=== PATIENT | male | born 1960 | race Caucasian/White ===

== ENCOUNTER 2016-08-04 07:51 | Outpatient (CLI) | payer MEDICAID | END 2016-08-04 07:52 | disposition home or self-care (01) | DX: D64.9 Anemia, unspecified (principal); I21.3 ST elevation (STEMI) myocardial infarction of unspecified site; F25.0 Schizoaffective disorder, bipolar type ==

== ENCOUNTER 2016-08-31 09:46 | Outpatient (CLI) | payer MEDICAID | END 2016-08-31 09:47 | disposition home or self-care (01) | DX: F25.0 Schizoaffective disorder, bipolar type (principal) ==

== ENCOUNTER 2016-12-11 09:25 | Emergency (ER) | payer MEDICAID ==
--- NOTE | 2016-12-11 09:49 | ED Physician Documentation ---
History of Present Illness - Stated complaint Stated Complaint: L SIDE NUMBNESS - Chief complaint Chief Complaint: Neuro - History obtained from History obtained from: Patient, Family - History of Present Illness Timing: Today - Additonal information Additional information: This patient is a 56-year-old male who presents with a complaint of right-sided facial numbness, tingling, any leakage of fluids from his mouth when he tries to drink. In addition his sister is present he knows some well as his speech does not sound right. The patient denies any numbness tingling or weakness or any neurologic complaints below the neck. 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 He also has a history of schizoaffective disorder. The patient and his sister says he was normal last night with no complaints and he woke up this morning It was noticed that he had these problems. He thinks the problems have gotten little worse since this morning. He denies any chest pain, shortness of breath, nausea , vomiting, constipation or diarrhea Review of systems: For complete review of systems please see history of present illness otherwise all other systems have been reviewed and are normal. Review of Systems Ten Systems: 10 systems reviewed and negative Eyes: denies: Loss of vision Ears: denies: Loss of hearing PD PAST MEDICAL HISTORY - Past Medical History Past Medical History: Yes Cardiovascular: Congestive heart failure Respiratory: Sleep apnea Psych: Other Other Past Medical History: schizoaffective disorder - Past Surgical History Past Surgical History: Yes Ortho: Hip replacement - Present Medications Home Medications: Ambulatory Orders Medication Instructions Recorded Confirmed Calcium Carb, Citrate/Vit D3 1 tab PO DAILY 12/29/13 12/11/16 [Calcium + D3 ER Tablet] Docusate Sodium 100Mg Capsule 100 mg PO DAILY 12/29/13 12/11/16 [Colace] Duloxetine HCl [Cymbalta] 60 mg PO DAILY 12/29/13 12/11/16 Iron 36 mg PO BID 12/29/13 12/11/16 Metoprolol Succinate [Toprol Xl] 50 mg PO DAILY 12/29/13 12/11/16 Multivitamin [Multivitamins] 1 tab PO DAILY 12/29/13 12/11/16 Omeprazole 40 mg PO BID PRN 12/29/13 12/11/16 Pravastatin Sodium 80 mg PO DAILY 12/29/13 12/11/16 Prazosin [Minipress] 1 mg PO DAILY 12/29/13 12/11/16 QUEtiapine [SEROquel] 600 mg PO DAILY 12/29/13 12/11/16 Risperidone 2 mg PO BID 12/29/13 12/11/16 Aspirin [Adult Low Dose Aspirin EC] 81 mg PO DAILY 11/15/15 12/11/16 Divalproex Sodium [Divalproex 1,000 mg PO DAILY 11/15/15 12/11/16 Sodium ER] Fluticasone [Flonase] 2 sprays NS DAILY 11/15/15 12/11/16 Furosemide 20 mg PO DAILY 11/15/15 12/11/16 Losartan Potassium 25 mg PO DAILY 11/15/15 12/11/16 Rivaroxaban [Xarelto] 20 mg PO DAILY 11/15/15 12/11/16 Prednisone 40 mg PO DAILY #8 tablet 12/11/16 Valacyclovir HCl [Valtrex] 1,000 mg PO BID #14 tablet 12/11/16 predniSONE [Deltasone] 10 mg PO DAILY #26 tablet 12/11/16 - Allergies Allergies/Adverse Reactions: Allergies Allergy/AdvReac Type Severity Reaction Status Date / Time Penicillins Allergy Unknown Verified 12/11/16 09:30 - Social History Does the pt smoke?: No Smoking Status: Never smoker Does the pt drink ETOH?: No Does the pt have substance abuse?: No - Immunizations Immunizations are current?: Yes - POLST Patient has POLST: No PD ED PE NORMAL - General General: Alert and oriented X 3, No acute distress - HEENT HEENT: Atraumatic, PERRL, EOMI - Neck Neck: Supple, no meningeal sign - Cardiac Cardiac: RRR, No murmur, No gallop, No rub - Respiratory Respiratory: No respiratory distress, Clear bilaterally - Abdomen Abdomen: Normal bowel sounds, Soft, Non tender, Non distended - Male Male : Deferred - Back Back: No CVA TTP, No spinal TTP - Derm Derm: Normal color, Warm and dry, No rash, Other - Extremities Extremities: No deformity, No tenderness to palpate, Normal ROM s pain, No edema - Neuro Neuro: Alert and oriented X 3, 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 Results - Vitals Vitals: Vital Signs - 24 hr 12/11/16 12/11/16 12/11/16 09:28 11:08 11:14 Temperature 36.5 C Heart Rate 73 59 L Respiratory 18 16 Rate Blood Pressure 138/88 H 128/80 O2 Saturation 95 93 12/11/16 12/11/16 12/11/16 13:15 13:20 14:06 Temperature Heart Rate 54 L 53 L 56 L Respiratory 12 16 16 Rate Blood Pressure 128/80 134/84 H 128/89 H O2 Saturation 95 93 95 Oxygen O2 Source Room air - Labs Labs: Laboratory Tests 12/11/16 12/11/16 12/11/16 09:55 09:55 09:55 WBC 4.7 L RBC 4.37 L Hgb 13.4 L Hct 39.6 L MCV 90.7 MCH 30.7 MCHC 33.9 RDW 14.8 Plt Count 146 MPV 8.7 Neut # 2.2 Lymph # 2.0 Thayer # 0.4 Eos # 0.1 Baso # 0.0 Absolute Nucleated RBC 0.00 Nucleated RBCs 0.1 PT 15.3 H INR 1.4 H APTT 35.2 H Sodium 138 Potassium 3.7 Chloride 100 L Carbon Dioxide 31 Anion Gap 7.0 BUN 14 Creatinine 1.1 Estimated GFR (MDRD) 69 L Glucose 124 H Calcium 8.5 Troponin I B-Natriuretic Peptide Urine Color Urine Clarity Urine pH Ur Specific [place] Urine Protein Urine Glucose (UA) Urine Ketones Urine Occult Blood Urine Nitrite Urine Bilirubin Urine Urobilinogen Ur Leukocyte Esterase Ur Microscopic Review Urine Culture Comments 12/11/16 12/11/16 12/11/16 09:55 09:55 11:05 WBC RBC Hgb Hct MCV MCH MCHC RDW Plt Count MPV Neut # Lymph # Thayer # Eos # Baso # Absolute Nucleated RBC Nucleated RBCs PT INR APTT Sodium Potassium Chloride Carbon Dioxide Anion Gap BUN Creatinine Estimated GFR (MDRD) Glucose Calcium Troponin I < 0.04 B-Natriuretic Peptide 57 Urine Color YELLOW Urine Clarity CLEAR Urine pH 6.0 Ur Specific [place] <=1.005 Urine Protein NEGATIVE Urine Glucose (UA) NEGATIVE Urine Ketones NEGATIVE Urine Occult Blood NEGATIVE Urine Nitrite NEGATIVE Urine Bilirubin NEGATIVE Urine Urobilinogen 0.2 (NORMAL) Ur Leukocyte Esterase NEGATIVE Ur Microscopic Review NOT INDICATED Urine Culture Comments NOT INDICATED PD MEDICAL DECISION MAKING - ED course ED course: This patient is a 56-year-old man who currently is a resident at a assisted living center. He is brought in for evaluation of onset of right sided facial droop and inability to drink liquids. He does have a history of a prior stroke at age 40 and has had significant cardiovascular problems mainly structural problems but does take Xarelto daily and has been compliant with this medication. On physical examination here he was awake and alert and he had an obvious deficit in the right forehead musculature where it is quite obvious he is unable to close her right eye with lid lag. On the same side, the right side he also had a facial droop. Clinically based on this finding is suspected much more likely that he was have an acute Delc Id's palsy as opposed to a central cause such as stroke. During his stay here the symptoms involving the right side have evolved and he has no symptoms of weakness numbness or tingling involving the ipsilateral or contralateral side. CT scan of the head done here is unremarkable according to radiology. Chest x-ray shows no acute intrathoracic disease an EKG shows normal sinus rhythm at 60 bpm the GA is slightly prolonged at 200 ms the QRS is prolonged and right bundle branch block and the QT is borderline prolonged at 502 ms. From a laboratory standpoint there are no significant laboratory abnormalities. He was started on prednisone and Valtrex here for presumed Del Cid's palsy. This is discussed with the patient's daughter who is here with the patient. At this point in time he can be safely discharged home we will continue the Valtrex and a short course of prednisone. Disposition: Discharged back to assisted living Clinical impression: 1. Acute right-sided Del Cid's palsy Departure - Departure Disposition: 01 Home, Self Care Clinical Impression: Stroke-like symptoms, Del Cid's palsy Condition: Good Instructions: ED [place] [facility] Follow-Up: Jossue Coulter MD [Primary Care Provider] - Prescriptions: predniSONE [Deltasone] 10 mg PO DAILY #26 tablet Prednisone 40 mg PO DAILY #8 tablet Valacyclovir HCl [Valtrex] 1,000 mg PO BID #14 tablet
[2016-12-11 10:06] LABS: BASOPHILS % (AUTO) 0.3 %; EOSINOPHILS # (AUTO) 0.1 10^3/uL (0.0-0.7); EOSINOPHILS % (AUTO) 2.4 %; HCT - HEMATOCRIT 39.6 % (42.0-52.0); HGB - HEMOGLOBIN 13.4 g/dL (14.0-18.0); LYMPHOCYTES % (AUTO) 41.4 %; MEAN CORPUSCULAR HEMOGLOBIN 30.7 pg (27.0-31.0); MEAN CORPUSCULAR HGB CONC 33.9 g/dL (32.0-36.0); MEAN CORPUSCULAR VOLUME 90.7 fL (80.0-94.0); MEAN PLATELET VOLUME 8.7 fL (7.4-11.4); MONOCYTES # (AUTO) 0.4 10^3/uL (0.0-1.0); MONOCYTES % (AUTO) 8.7 %; NEUTROPHILS # (AUTO) 2.2 10^3/uL (1.5-6.6); NEUTROPHILS % (AUTO) 47.2 %; NUCLEATED RED BLOOD CELLS AUTO 0.1 /100WBC; RED BLOOD COUNT 4.37 10^6/uL (4.70-6.10); RED CELL DISTRIBUTION WIDTH 14.8 % (12.0-15.0); UNCORRECTED WHITE BLOOD COUNT 4.7 x10^3/uL; WHITE BLOOD COUNT 4.7 x10^3/uL (4.8-10.8)
[2016-12-11 10:11] LABS: CALCIUM 8.5 mg/dL (8.5-10.3); CREATININE 1.1 mg/dL (0.6-1.2); POTASSIUM 3.7 mmol/L (3.5-5.0)
[2016-12-11 10:12] LABS: INR 1.4 (0.8-1.2); PT - PROTHROMBIN TIME 15.3 secs (9.9-12.6)
[2016-12-11 10:19] LABS: PARTIAL THROMBOPLASTIN TIME 35.2 secs (24.9-33.3)
[2016-12-11 11:16] LABS: BILIRUBIN,URINE NEGATIVE (NEGATIVE)
[2016-12-11 11:19] LABS: UA CHARGE (STRIP ONLY) YES; UR CULTURE IF IND NOT INDICATED
--- NOTE | 2016-12-11 12:04 | XRAY Preliminary Report ---
Exam: XR Chest 1 View IMPRESSION: Negative portable chest. No acute findings compared with 2014. [facility] SITE ID: [id number]
--- NOTE | 2016-12-11 12:06 | XRAY Report ---
EXAM: CHEST RADIOGRAPHY EXAM DATE: 12/11/2016 10:39 AM. CLINICAL HISTORY: Possible cva. COMPARISON: 12/29/2013. TECHNIQUE: 1 view. FINDINGS: Lungs/Pleura: No focal opacities evident. No pleural effusion. No pneumothorax. Mediastinum: Within exam limitations, cardiomediastinal contour is normal. Other: Status post sternotomy. IMPRESSION: Negative portable chest. No acute findings compared with 2013. [facility] Referring Provider Line: [phone] SITE ID: [id number]
--- NOTE | 2016-12-11 12:54 | CT Preliminary Report ---
Exam: CT Head W/O Impression: No evidence of an intracranial hemorrhage or depressed skull fracture. Encephalomalacia involving the right parietal lobe consistent with a previous infarct. [facility] SITE ID: [id number]
--- NOTE | 2016-12-11 12:56 | CT Report ---
EXAM: CT HEAD EXAM DATE: 12/11/2016 10:26 AM. CLINICAL HISTORY: Right facial droop. COMPARISON: None. TECHNIQUE: Multiaxial CT images were obtained from the foramen magnum to the vertex. IV contrast: Non e. Reformats: Coronal. In accordance with CT protocol optimization, one or more of the following dose reduction techniques w ere utilized for this exam: automated exposure control, adjustment of mA and/or KV based on patient s ize, or use of iterative reconstructive technique. FINDINGS: There is extensive encephalomalacia involving the right parietal lobe consistent with a previous infa rct. The ventricles and cortical sulci are prominent. There is no evidence of an intraparenchymal hem orrhage or extra-axial fluid collection. The visualized mastoid air cells and paranasal sinuses are clear. No depressed skull fracture is seen . Impression: No evidence of an intracranial hemorrhage or depressed skull fracture. Encephalomalacia involving the right parietal lobe consistent with a previous infarct. [facility] Referring Provider Line: [phone] SITE ID: [id number]
[2016-12-11] MEDS ORDERED: predniSONE 20 MG TABLET PO STA (12:59)
[2016-12-11] MEDS ORDERED: ACYCLOVIR 200 MG CAPSULE PO STA (13:01)
[2016-12-11] MEDS ORDERED: predniSONE 20 MG TABLET ONE (13:10)
[2016-12-11] MEDS ORDERED: ACYCLOVIR 200 MG CAPSULE PO ONE (13:11)
[2016-12-11 14:07] VITALS: BP 128/89
== END 2016-12-11 14:41 | disposition home or self-care (01) ==
LOC: ED 09:25
DX: G51.0 Bell's palsy (principal); I50.9 Heart failure, unspecified; F25.9 Schizoaffective disorder, unspecified; Z79.82 Long term (current) use of aspirin; Z79.52 Long term (current) use of systemic steroids; Z79.01 Long term (current) use of anticoagulants; Z88.0 Allergy status to penicillin; Z86.73 Personal history of transient ischemic attack (TIA), and cerebral infarction without residual deficits
CPT/HCPCS: 36415; 70450; 71010; 80048; 81003; 83880; 84484; 85025; 85610; 85730; 93005; 99284; 99285; A9270; J7512; 81001; 87086

== ENCOUNTER 2017-04-21 12:45 | Outpatient (CLI) | payer MEDICAID | END 2017-04-21 12:46 | disposition critical access hospital (66) | LOC: EMS 12:45 | PROVIDERS: ATTEND Surgery | DX: R20.0 Anesthesia of skin (principal) | CPT/HCPCS: A0425; A0429 ==

== ENCOUNTER 2017-04-21 12:51 | Emergency (ER) | payer MEDICAID ==
--- NOTE | 2017-04-21 16:08 | ED Physician Documentation ---
History of Present Illness - Stated complaint Stated Complaint: NUMB TONGUE - Chief complaint Chief Complaint: Neuro - Additonal information Additional information: hx from pt and EMR per EMR 57 male hx CVA in his 30s and a congesnital cardiac defect on xarelto with baseline L sided weakness lives in an adult home per pt to ER today 2/2 R face numbness since December also states for last week he has been tired and weak and has not been able to get the mail denies any IRWIN neck pain fever cough NVD CP AP he is very sleepy and a poor historian Review of Systems Constitutional: denies: Fever, Chills Cardiac: denies: Chest pain / pressure, Palpitations Respiratory: denies: Dyspnea, Cough GI: denies: Abdominal Pain, Nausea, Vomiting : denies: Dysuria Neurologic: reports: Numbness. denies: Headache Endocrine: reports: Easy bruising / bleeding (xarelto) Immunocompromised: denies: Immunocompromised PD PAST MEDICAL HISTORY - Past Medical History Cardiovascular: Congestive heart failure Respiratory: Sleep apnea Psych: Other - Past Surgical History Past Surgical History: Yes Ortho: Hip replacement - Present Medications Home Medications: Ambulatory Orders Medication Instructions Recorded Confirmed Calcium Carb, Citrate/Vit D3 1 tab PO DAILY 12/29/13 04/21/17 [Calcium + D3 ER Tablet] Docusate Sodium 100Mg Capsule 100 mg PO DAILY 12/29/13 04/21/17 [Colace] Duloxetine HCl [Cymbalta] 60 mg PO DAILY 12/29/13 04/21/17 Metoprolol Succinate [Toprol Xl] 50 mg PO DAILY 12/29/13 04/21/17 Multivitamin [Multivitamins] 1 tab PO DAILY 12/29/13 04/21/17 Omeprazole 40 mg PO BID PRN 12/29/13 04/21/17 Prazosin [Minipress] 1 mg PO DAILY 12/29/13 04/21/17 QUEtiapine [SEROquel] 600 mg PO DAILY 12/29/13 04/21/17 risperiDONE [Risperidone] 2 mg PO BID 12/29/13 04/21/17 Aspirin [Adult Low Dose Aspirin EC] 81 mg PO DAILY 11/15/15 04/21/17 Divalproex Sodium [Divalproex 1,000 mg PO DAILY 11/15/15 04/21/17 Sodium ER] Fluticasone [Flonase] 2 sprays NS DAILY 11/15/15 04/21/17 Furosemide 20 mg PO DAILY 11/15/15 04/21/17 Losartan Potassium 25 mg PO DAILY 11/15/15 04/21/17 Rivaroxaban [Xarelto] 20 mg PO DAILY 11/15/15 04/21/17 - Allergies Allergies/Adverse Reactions: Allergies Allergy/AdvReac Type Severity Reaction Status Date / Time Penicillins Allergy Unknown Verified 04/21/17 12:55 - Social History Does the pt smoke?: No Smoking Status: Never smoker Does the pt drink ETOH?: No Does the pt have substance abuse?: No - Immunizations Immunizations are current?: Yes - POLST Patient has POLST: No PD ED PE NORMAL - Vitals Vital signs reviewed: Yes - General General: No: Alert and oriented X 3 (alert answers questions confused and groggy ) - HEENT HEENT: PERRL (2 mm), EOMI (with nytsagmus) - Neck Neck: Supple, no meningeal sign - Cardiac Cardiac: RRR - Respiratory Respiratory: No respiratory distress, Clear bilaterally - Abdomen Abdomen: Soft, Non tender - Neuro Neuro: Other (facial droop not new per pt and chart, dec sensation to right face near mouth). No: Alert and oriented X 3 Results - Vitals Vitals: Vital Signs - 24 hr 04/21/17 04/21/17 04/21/17 12:52 15:40 18:19 Temperature 36.8 C 36.6 C Heart Rate 70 63 64 Respiratory 12 15 16 Rate Blood Pressure 144/85 H 132/87 H 133/75 H O2 Saturation 97 94 Oxygen O2 Source Room air - Labs Labs: Laboratory Tests 04/21/17 04/21/17 04/21/17 16:00 16:32 16:32 WBC 4.3 L RBC 4.31 L Hgb 13.3 L Hct 39.3 L MCV 91.3 MCH 30.8 MCHC 33.8 RDW 14.1 Plt Count 164 MPV 8.4 Neut # 1.9 Lymph # 1.8 Pope # 0.5 Eos # 0.0 Baso # 0.0 Absolute Nucleated RBC 0.01 Nucleated RBC % 0.1 Sodium 137 Potassium 3.6 Chloride 99 L Carbon Dioxide 26 Anion Gap 12.0 BUN 12 Creatinine 1.1 Estimated GFR (MDRD) 69 L Glucose 97 Calcium 8.6 Urine Color YELLOW Urine Clarity CLEAR Urine pH 6.0 Ur Specific [place] 1.015 Urine Protein NEGATIVE Urine Glucose (UA) NEGATIVE Urine Ketones NEGATIVE Urine Occult Blood NEGATIVE Urine Nitrite NEGATIVE Urine Bilirubin NEGATIVE Urine Urobilinogen 0.2 (NORMAL) Ur Leukocyte Esterase NEGATIVE Ur Microscopic Review NOT INDICATED Urine Culture Comments NOT INDICATED Urine Opiates Screen NEGATIVE Ur Oxycodone Screen NEGATIVE Urine Methadone Screen NEGATIVE Ur Propoxyphene Screen NEGATIVE Ur Barbiturates Screen NEGATIVE Ur Tricyclics Screen POSITIVE H Ur Phencyclidine Scrn NEGATIVE Ur Amphetamine Screen NEGATIVE U Methamphetamines Scrn NEGATIVE U Benzodiazepines Scrn NEGATIVE Urine Cocaine Screen NEGATIVE U Cannabinoids Screen NEGATIVE PD MEDICAL DECISION MAKING - ED course ED course: labs and CTH no acute by pt report sx since last summer so do not think needs admit for MRI carotids etc - can be done as outpt at this pt will need to talk to adult home and confirm mental status is not sig diff from baseline else plan to dc pt ambulating s difficulty and nurse spoke with adult home and confirmed pt at baseline will dc Departure - Departure Disposition: 01 Home, Self Care Clinical Impression: Paresthesia Condition: Good Instructions: ED Paraesthesias Follow-Up: Jossue Coulter MD [Primary Care Provider] - Comments: The CT scan does nt show any acute problems. Your labs look OK too Numbness is not typical of Del Cid's palsy - usually Del Cid's causes weakness Please follow up with your PMD for further evaluation as an outpatient. Return if worse in any way Discharge Date/Time: 04/21/17 18:45
[2017-04-21 16:17] LABS: BILIRUBIN,URINE NEGATIVE (NEGATIVE)
[2017-04-21 16:25] LABS: UA CHARGE (STRIP ONLY) YES; UR CULTURE IF IND NOT INDICATED
[2017-04-21 16:40] LABS: BASOPHILS % (AUTO) 0.4 %; EOSINOPHILS % (AUTO) 0.9 %; HCT - HEMATOCRIT 39.3 % (42.0-52.0); HGB - HEMOGLOBIN 13.3 g/dL (14.0-18.0); LYMPHOCYTES # (AUTO) 1.8 10^3/uL (1.5-3.5); LYMPHOCYTES % (AUTO) 42.6 %; MEAN CORPUSCULAR HEMOGLOBIN 30.8 pg (27.0-31.0); MEAN CORPUSCULAR HGB CONC 33.8 g/dL (32.0-36.0); MEAN CORPUSCULAR VOLUME 91.3 fL (80.0-94.0); MEAN PLATELET VOLUME 8.4 fL (7.4-11.4); MONOCYTES # (AUTO) 0.5 10^3/uL (0.0-1.0); MONOCYTES % (AUTO) 11.6 %; NEUTROPHILS # (AUTO) 1.9 10^3/uL (1.5-6.6); NEUTROPHILS % (AUTO) 44.5 %; NUCLEATED RED BLOOD CELLS AUTO 0.1 /100WBC; RED BLOOD COUNT 4.31 10^6/uL (4.70-6.10); RED CELL DISTRIBUTION WIDTH 14.1 % (12.0-15.0); UNCORRECTED WHITE BLOOD COUNT 4.3 x10^3/uL; WHITE BLOOD COUNT 4.3 x10^3/uL (4.8-10.8)
[2017-04-21 16:49] LABS: CALCIUM 8.6 mg/dL (8.5-10.3); CREATININE 1.1 mg/dL (0.6-1.2); POTASSIUM 3.6 mmol/L (3.5-5.0)
--- NOTE | 2017-04-21 17:36 | CT Preliminary Report ---
Exam: CT HEAD W/O IMPRESSION: Stable right parietal lobe encephalomalacia. Generalized age-related cortical atrophic ch anges without evidence of acute intracranial abnormality. [facility] SITE ID: [id number]
--- NOTE | 2017-04-21 17:58 | CT Report ---
EXAM: CT HEAD EXAM DATE: 04/21/2017 05:23 p.m. CLINICAL HISTORY: Right face numbness. COMPARISON: 12/11/[address] TECHNIQUE: Multiaxial CT images were obtained from the foramen magnum to the vertex. IV contrast: Non e. Reformats: Coronal. In accordance with CT protocol optimization, one or more of the following dose reduction techniques w ere utilized for this exam: automated exposure control, adjustment of mA and/or KV based on patient s ize, or use of iterative reconstructive technique. FINDINGS: Parenchyma: Extensive encephalomalacia of the right parietal lobe again identified. No intraparenchym al hemorrhage. No evidence of mass, midline shift, or CT findings of acute infarction. Johnson-white dif ferentiation is distinct. Diffuse chronic microangiopathic white matter changes are evident. Extraaxial Spaces: Normal for age. No subdural or epidural collections identified. Ventricles: The ventricles and cortical sulci are enlarged, consistent with age-related tissue loss. Sinuses and orbits: Imaged paranasal sinuses, orbits, and mastoids show no significant abnormality. Bones: No evidence of fracture or calvarial defect. Other: None. IMPRESSION: Stable right parietal lobe encephalomalacia. Generalized age-related cortical atrophic changes withou t evidence of acute intracranial abnormality. [facility] Referring Provider Line: [phone] SITE ID: [id number]
[2017-04-21 18:20] VITALS: BP 133/75
== END 2017-04-21 18:45 | disposition home or self-care (01) ==
LOC: EDBD → EDUNIT# → ED 12:51
DX: R20.2 Paresthesia of skin (principal); I50.9 Heart failure, unspecified; Q24.9 Congenital malformation of heart, unspecified; Z86.73 Personal history of transient ischemic attack (TIA), and cerebral infarction without residual deficits; Z79.01 Long term (current) use of anticoagulants; Z96.649 Presence of unspecified artificial hip joint
CPT/HCPCS: 36415; 70450; 80048; 80306; 81001; 81003; 85025; 87086; 99284; 99285

== ENCOUNTER 2017-08-10 09:15 | Outpatient (CLI) | payer MEDICAID ==
[2017-08-10 08:28] LABS: ALBUMIN 3.6 g/dL (3.2-5.5); ALBUMIN/GLOBULIN RATIO 1.3 (1.0-2.2); ALKALINE PHOSPHATASE 46 IU/L (42-121); ALT ALANINE AMINOTRANSFERASE 29 IU/L (10-60); AST ASPARTATE AMINOTRANSFERASE 30 IU/L (10-42); BILIRUBIN,TOTAL 0.3 mg/dL (0.2-1.0); BUN - BLOOD UREA NITROGEN 12 mg/dL (6-20); CALCIUM 8.1 mg/dL (8.5-10.3); CARBON DIOXIDE - CO2 29 mmol/L (21-32); CHLORIDE 99 mmol/L (101-111); CHOL/HDL RATIO 3.4 (<5.0); CHOLESTEROL 149 mg/dL; CREATININE 1.1 mg/dL (0.6-1.2); GFR - MDRD 69 (>89); GLUCOSE 102 mg/dL (70-100); HDL CHOLESTEROL 44 mg/dL; LDL CHOLESTEROL,CALCULATED 84 mg/dL; LDL/HDL RATIO 1.9 (<3.6); SODIUM 137 mmol/L (135-145); TOTAL PROTEIN 6.4 g/dL (6.7-8.2); VLDL CHOLESTEROL 21 mg/dL
[2017-08-10 08:29] LABS: BASOPHILS % (AUTO) 0.2 %; EOSINOPHILS # (AUTO) 0.2 10^3/uL (0.0-0.7); EOSINOPHILS % (AUTO) 3.9 %; HGB - HEMOGLOBIN 13.2 g/dL (14.0-18.0); LYMPHOCYTES # (AUTO) 1.9 10^3/uL (1.5-3.5); LYMPHOCYTES % (AUTO) 44.7 %; MEAN CORPUSCULAR HEMOGLOBIN 31.3 pg (27.0-31.0); MEAN CORPUSCULAR HGB CONC 34.4 g/dL (32.0-36.0); MEAN PLATELET VOLUME 9.3 fL (7.4-11.4); MONOCYTES # (AUTO) 0.5 10^3/uL (0.0-1.0); MONOCYTES % (AUTO) 11.4 %; NEUTROPHILS # (AUTO) 1.7 10^3/uL (1.5-6.6); NEUTROPHILS % (AUTO) 39.8 %; PLT - PLATELET COUNT 128 10^3/uL (130-450); RED BLOOD COUNT 4.22 10^6/uL (4.70-6.10); RED CELL DISTRIBUTION WIDTH 14.8 % (12.0-15.0); WHITE BLOOD COUNT 4.2 x10^3/uL (4.8-10.8)
== END 2017-08-10 09:16 | disposition home or self-care (01) ==
LOC: LAB.R 09:15
PROVIDERS: ATTEND Family Medicine
DX: I50.9 Heart failure, unspecified (principal); E78.5 Hyperlipidemia, unspecified; D64.9 Anemia, unspecified
CPT/HCPCS: 80053; 80061; 83721; 85025

== ENCOUNTER 2017-12-16 13:30 | Outpatient (CLI) | payer MEDICAID ==
--- NOTE | 2017-12-16 13:59 | XRAY Report ---
Procedure Date: 12/16/2017 Accession Number: [id number] / [id number] Procedure: XRN - Shoulder 3 View RT CPT Code: FULL RESULT: EXAM: Shoulder 3 View RT DATE: 12/16/2017 1:42 PM CLINICAL HISTORY: pain in r shoulder COMPARISON: None. TECHNIQUE: 3 views. FINDINGS: Bones: Normal. No fracture or bone lesion. Joints: The glenohumeral and acromioclavicular joints are normal. Soft tissues: The visualized hemithorax is unremarkable. No soft tissue swelling. Sternotomy wires are partially visualized. IMPRESSION: Normal shoulder radiography. [facility]
== END 2017-12-16 13:31 | disposition home or self-care (01) ==
LOC: DI.N 13:30
PROVIDERS: ATTEND Family Medicine
DX: M25.511 Pain in right shoulder (principal)

== ENCOUNTER 2018-02-14 08:00 | Outpatient (CLI) | payer MEDICAID ==
[2018-02-14 08:21] LABS: BASOPHILS % (AUTO) 0.5 %; EOSINOPHILS # (AUTO) 0.1 10^3/uL (0.0-0.7); EOSINOPHILS % (AUTO) 2.9 %; HGB - HEMOGLOBIN 13.3 g/dL (14.0-18.0); LYMPHOCYTES # (AUTO) 1.7 10^3/uL (1.5-3.5); LYMPHOCYTES % (AUTO) 44.5 %; MEAN CORPUSCULAR HEMOGLOBIN 31.5 pg (27.0-31.0); MEAN CORPUSCULAR HGB CONC 34.6 g/dL (32.0-36.0); MEAN CORPUSCULAR VOLUME 90.9 fL (80.0-94.0); MEAN PLATELET VOLUME 9.1 fL (7.4-11.4); MONOCYTES # (AUTO) 0.4 10^3/uL (0.0-1.0); MONOCYTES % (AUTO) 9.3 %; NEUTROPHILS # (AUTO) 1.6 10^3/uL (1.5-6.6); NEUTROPHILS % (AUTO) 42.8 %; PLT - PLATELET COUNT 139 10^3/uL (130-450); RED BLOOD COUNT 4.24 10^6/uL (4.70-6.10); RED CELL DISTRIBUTION WIDTH 15.2 % (12.0-15.0); WHITE BLOOD COUNT 3.8 x10^3/uL (4.8-10.8)
[2018-02-14 08:58] LABS: ALBUMIN 3.6 g/dL (3.2-5.5); ALBUMIN/GLOBULIN RATIO 1.2 (1.0-2.2); ALKALINE PHOSPHATASE 42 IU/L (42-121); ALT ALANINE AMINOTRANSFERASE 26 IU/L (10-60); AST ASPARTATE AMINOTRANSFERASE 31 IU/L (10-42); BILIRUBIN,TOTAL 0.5 mg/dL (0.2-1.0); BUN - BLOOD UREA NITROGEN 14 mg/dL (6-20); CALCIUM 8.1 mg/dL (8.5-10.3); CARBON DIOXIDE - CO2 27 mmol/L (21-32); CHLORIDE 102 mmol/L (101-111); CHOLESTEROL 164 mg/dL; CREATININE 1.1 mg/dL (0.6-1.2); GFR - MDRD 69 (>89); GLUCOSE 94 mg/dL (70-100); HDL CHOLESTEROL 41 mg/dL; LDL CHOLESTEROL,CALCULATED 84 mg/dL; SODIUM 136 mmol/L (135-145); TOTAL PROTEIN 6.5 g/dL (6.7-8.2); VALPROIC ACID (DEPAKOTE) 45.1 ug/mL; VLDL CHOLESTEROL 39 mg/dL
[2018-02-14 09:14] LABS: HB2 TOTAL 13.8 g/dL; HEMOGLOBIN A1C 0.53 g/dL; HEMOGLOBIN A1C % 5.7 % (4.6-6.2)
== END 2018-02-14 08:01 | disposition home or self-care (01) ==
LOC: LAB.R 08:00
PROVIDERS: ATTEND Licensed Practical Nurse
DX: F25.9 Schizoaffective disorder, unspecified (principal); Z79.899 Other long term (current) drug therapy
CPT/HCPCS: 80053; 80061; 80164; 83036; 83721; 85025

== ENCOUNTER 2018-04-05 12:18 | Emergency (ER) | payer MEDICAID ==
[2018-04-05 13:20] LABS: BASOPHILS % (AUTO) 0.4 %; EOSINOPHILS % (AUTO) 0.1 %; LYMPHOCYTES # (AUTO) 0.9 10^3/uL (1.5-3.5); LYMPHOCYTES % (AUTO) 7.7 %; MEAN CORPUSCULAR HEMOGLOBIN 31.4 pg (27.0-31.0); MEAN CORPUSCULAR HGB CONC 34.8 g/dL (32.0-36.0); MEAN CORPUSCULAR VOLUME 90.4 fL (80.0-94.0); MEAN PLATELET VOLUME 8.7 fL (7.4-11.4); MONOCYTES # (AUTO) 0.9 10^3/uL (0.0-1.0); MONOCYTES % (AUTO) 8.4 %; NEUTROPHILS # (AUTO) 9.3 10^3/uL (1.5-6.6); NEUTROPHILS % (AUTO) 83.4 %; PLT - PLATELET COUNT 176 10^3/uL (130-450); RED BLOOD COUNT 4.14 10^6/uL (4.70-6.10); RED CELL DISTRIBUTION WIDTH 14.8 % (12.0-15.0); WHITE BLOOD COUNT 11.2 x10^3/uL (4.8-10.8)
[2018-04-05 13:37] LABS: ALBUMIN 3.6 g/dL (3.2-5.5); ALBUMIN/GLOBULIN RATIO 1.1 (1.0-2.2); BILIRUBIN,TOTAL 0.7 mg/dL (0.2-1.0); CALCIUM 8.7 mg/dL (8.5-10.3); CREATININE 0.9 mg/dL (0.6-1.2); TOTAL PROTEIN 6.8 g/dL (6.7-8.2)
--- NOTE | 2018-04-05 13:54 | XRAY Report ---
Reason: chest pain Procedure Date: 04/05/2018 Accession Number: [id number] / [id number] Procedure: XR - Chest 1 View X-Ray CPT Code: 60778 FULL RESULT: EXAM: CHEST RADIOGRAPHY EXAM DATE: 04/05/2018 01:30 PM. CLINICAL HISTORY: Chest pain. COMPARISON: Chest radiograph from 12/11/2016. TECHNIQUE: 1 view. FINDINGS: Lungs/Pleura: No focal airspace opacities. No pleural effusion or pneumothorax. Mediastinum: Cardiomediastinal silhouette and pulmonary vasculature are within normal limits. Other: There are abandoned cardiac leads overlying the left chest. Sternal wires are intact. IMPRESSION: No acute cardiopulmonary abnormality. [facility]
[2018-04-05 13:57] LABS: TROPONIN I < 0.04 ng/mL (<0.49)
[2018-04-05 13:59] LABS: CREATINE KINASE MB 4.6 ng/mL (0.6-6.3)
--- NOTE | 2018-04-05 14:17 | ED Physician Documentation ---
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 On anticoagulation and numerous psych meds. The history he gives me is a little different than that he gave the nurse. When I walk in the room and asked him his history he says "I lied to the nurse, For my birthday I had a whole tub of red charissa and then I got sick with near vomiting and burning chest pain that is now gone and was only present when laying flat." He says he feels 100% better now without any current chest pain or nausea.) Review of Systems Ten Systems: 10 systems reviewed and negative Constitutional: denies: Fever, Chills Cardiac: denies: Palpitations Respiratory: denies: Dyspnea, Cough GI: reports: Nausea. denies: Abdominal Pain, Vomiting PD PAST MEDICAL HISTORY - Past Medical History Past Medical History: No Cardiovascular: Congestive heart failure, Hypertension Respiratory: Sleep apnea Neuro: None Endocrine/Autoimmune: None GI: None : None HEENT: None Psych: Other Musculoskeletal: None Derm: None - Past Surgical History Past Surgical History: Yes Ortho: Hip replacement Cardiovascular: Valve replacement - Present Medications Home Medications: Ambulatory Orders Medication Instructions Recorded Confirmed Calcium Carb, Citrate/Vit D3 1 tab PO DAILY 12/29/13 04/21/17 [Calcium + D3 ER Tablet] Docusate Sodium 100Mg Capsule 100 mg PO DAILY 12/29/13 04/21/17 [Colace] Duloxetine HCl [Cymbalta] 60 mg PO DAILY 12/29/13 04/21/17 Metoprolol Succinate [Toprol Xl] 50 mg PO DAILY 12/29/13 04/21/17 Multivitamin [Multivitamins] 1 tab PO DAILY 12/29/13 04/21/17 Prazosin [Minipress] 1 mg PO DAILY 12/29/13 04/21/17 QUEtiapine [SEROquel] 400 mg PO DAILY 12/29/13 04/21/17 risperiDONE [Risperidone] 2 mg PO BID 12/29/13 04/21/17 Aspirin [Adult Low Dose Aspirin EC] 81 mg PO DAILY 11/15/15 04/21/17 Divalproex Sodium [Divalproex 1,000 mg PO DAILY 11/15/15 04/21/17 Sodium ER] Fluticasone [Flonase] 2 sprays NS DAILY 11/15/15 04/21/17 Furosemide 20 mg PO DAILY 11/15/15 04/21/17 Losartan Potassium 25 mg PO DAILY 11/15/15 04/21/17 Rivaroxaban [Xarelto] 20 mg PO DAILY 11/15/15 04/21/17 Pravastatin [Pravachol] 04/05/18 raNITIdine [Zantac] 04/05/18 - Allergies Allergies/Adverse Reactions: Allergies Allergy/AdvReac Type Severity Reaction Status Date / Time Penicillins Allergy Unknown Verified 04/05/18 12:39 - Social History Does the pt smoke?: No Smoking Status: Never smoker Does the pt drink ETOH?: No Does the pt have substance abuse?: No - Immunizations Immunizations are current?: Yes - POLST Patient has POLST: No PD ED PE NORMAL - Vitals Vital signs reviewed: Yes - General General: Alert and oriented X 3, No acute distress, Well developed/nourished - HEENT HEENT: PERRL, EOMI - Neck Neck: Supple, no meningeal sign, No bony TTP - Cardiac Cardiac: RRR, No murmur - Respiratory Respiratory: No respiratory distress, Clear bilaterally - Abdomen Abdomen: Non tender - Extremities Extremities: No edema, No calf tenderness / cord - Neuro Neuro: Alert and oriented X 3, Normal speech - Psych Psych: Other (Flat affect, concrete thinking.) Results - Vitals Vitals: Vital Signs - 24 hr 04/05/18 04/05/18 04/05/18 12:26 13:30 14:00 Temperature 35.7 C L Heart Rate 120 H 103 H 102 H Respiratory 18 16 18 Rate Blood Pressure 107/48 L 124/97 H 109/80 O2 Saturation 94 94 94 04/05/18 04/05/18 14:30 15:00 Temperature Heart Rate 102 H 98 Respiratory 18 18 Rate Blood Pressure 109/80 115/85 H O2 Saturation 95 93 Oxygen O2 Source Room air - EKG (time done) 1237 Rate: Rate (enter#) (109) Rhythm: Sinus tachycardia [place]: Normal Intervals: RBBB Compare to prior EKG: Unchanged from prior EKG (Prior EKG on the chart dated December 11 of last year shows similar right bundle but block morphology, he is more tachycardic today.) Computer interpretation: Agree with computer - Labs Labs: Laboratory Tests 04/05/18 04/05/18 04/05/18 12:46 12:46 12:46 WBC 11.2 H RBC 4.14 L Hgb 13.0 L Hct 37.4 L MCV 90.4 MCH 31.4 H MCHC 34.8 RDW 14.8 Plt Count 176 MPV 8.7 Neut # (Auto) 9.3 H Lymph # (Auto) 0.9 L Dare # (Auto) 0.9 Eos # (Auto) 0.0 Baso # (Auto) 0.0 Absolute Nucleated RBC 0.00 Nucleated RBC % 0.0 Sodium 134 L Potassium 3.6 Chloride 96 L Carbon Dioxide 26 Anion Gap 12.0 BUN 15 Creatinine 0.9 Estimated GFR (MDRD) 87 L Glucose 145 H Calcium 8.7 Total Bilirubin 0.7 AST 33 ALT 21 Alkaline Phosphatase 52 Total Creatine Kinase 114 CK-MB (CK-2) 4.6 Troponin I < 0.04 Total Protein 6.8 Albumin 3.6 Globulin 3.2 Albumin/Globulin Ratio 1.1 Lipase 23 04/05/18 15:25 WBC RBC Hgb Hct MCV MCH MCHC RDW Plt Count MPV Neut # (Auto) Lymph # (Auto) Dare # (Auto) Eos # (Auto) Baso # (Auto) Absolute Nucleated RBC Nucleated RBC % Sodium Potassium Chloride Carbon Dioxide Anion Gap BUN Creatinine Estimated GFR (MDRD) Glucose Calcium Total Bilirubin AST ALT Alkaline Phosphatase Total Creatine Kinase CK-MB (CK-2) Troponin I < 0.04 Total Protein Albumin Globulin Albumin/Globulin Ratio Lipase PD MEDICAL DECISION MAKING - ED course ED course: This is a 58-year-old gentleman with underlying psychiatric disorder who presents with resolved chest pain after eating an entire tub of red charissa. EKG is without ischemic change and serial troponins are negative. Departure - Departure Disposition: 01 Home, Self Care Clinical Impression: Chest pain Qualifiers: Chest pain type: unspecified Qualified Code(s): R07.9 - Chest pain, unspecified Condition: Good Record reviewed to determine appropriate education?: Yes Instructions: ED Chest Pain NonCardiac Comments: Call your doctor to arrange a follow-up appointment, make the next available appointment. In the interim, return anytime if worse or if new symptoms develop.
[2018-04-05 18:15] VITALS: BP 129/96
== END 2018-04-05 18:15 | disposition home or self-care (01) ==
LOC: ED 12:18
DX: R07.9 Chest pain, unspecified (principal); F31.9 Bipolar disorder, unspecified; Q22.5 Ebstein's anomaly; I11.0 Hypertensive heart disease with heart failure; I50.9 Heart failure, unspecified; R00.0 Tachycardia, unspecified; I45.10 Unspecified right bundle-branch block; Z79.01 Long term (current) use of anticoagulants; Z95.3 Presence of xenogenic heart valve
CPT/HCPCS: 36415; 71045; 80053; 82550; 82553; 83690; 84484; 85025; 93005; 99283

== ENCOUNTER 2018-10-14 07:31 | Outpatient (CLI) | payer MEDICAID ==
[2018-10-14 07:44] LABS: BASOPHILS % (AUTO) 0.6 %; EOSINOPHILS # (AUTO) 0.1 10^3/uL (0.0-0.7); EOSINOPHILS % (AUTO) 2.8 %; HGB - HEMOGLOBIN 13.1 g/dL (14.0-18.0); LYMPHOCYTES # (AUTO) 2.5 10^3/uL (1.5-3.5); LYMPHOCYTES % (AUTO) 49.9 %; MEAN CORPUSCULAR HEMOGLOBIN 30.1 pg (27.0-31.0); MEAN CORPUSCULAR HGB CONC 32.6 g/dL (32.0-36.0); MEAN CORPUSCULAR VOLUME 92.1 fL (80.0-94.0); MEAN PLATELET VOLUME 9.2 fL (7.4-11.4); MONOCYTES # (AUTO) 0.5 10^3/uL (0.0-1.0); NEUTROPHILS # (AUTO) 1.8 10^3/uL (1.5-6.6); NEUTROPHILS % (AUTO) 36.7 %; PLT - PLATELET COUNT 138 10^3/uL (130-450); RED BLOOD COUNT 4.37 10^6/uL (4.70-6.10); RED CELL DISTRIBUTION WIDTH 15.8 % (12.0-15.0); WHITE BLOOD COUNT 4.9 x10^3/uL (4.8-10.8)
[2018-10-14 08:01] LABS: ALBUMIN 3.7 g/dL (3.2-5.5); ALBUMIN/GLOBULIN RATIO 1.2 (1.0-2.2); ALKALINE PHOSPHATASE 44 IU/L (42-121); ALT ALANINE AMINOTRANSFERASE 23 IU/L (10-60); AST ASPARTATE AMINOTRANSFERASE 47 IU/L (10-42); BILIRUBIN,TOTAL 0.8 mg/dL (0.2-1.0); BUN - BLOOD UREA NITROGEN 15 mg/dL (6-20); CALCIUM 8.2 mg/dL (8.5-10.3); CARBON DIOXIDE - CO2 27 mmol/L (21-32); CHLORIDE 101 mmol/L (101-111); CHOLESTEROL 173 mg/dL; CREATININE 1.2 mg/dL (0.6-1.2); GFR - MDRD 62 (>89); GLUCOSE 108 mg/dL (70-100); HDL CHOLESTEROL 43 mg/dL; LDL CHOLESTEROL,CALCULATED 99 mg/dL; LDL/HDL RATIO 2.3 (<3.6); SODIUM 136 mmol/L (135-145); TOTAL PROTEIN 6.7 g/dL (6.7-8.2); VALPROIC ACID (DEPAKOTE) 61.9 ug/mL; VLDL CHOLESTEROL 31 mg/dL
[2018-10-14 08:03] LABS: HB2 TOTAL 13.3 g/dL; HEMOGLOBIN A1C 0.53 g/dL; HEMOGLOBIN A1C % 5.8 % (4.6-6.2)
== END 2018-10-14 07:32 | disposition home or self-care (01) ==
LOC: LAB 07:31
PROVIDERS: ATTEND Licensed Practical Nurse
DX: F25.9 Schizoaffective disorder, unspecified (principal); Z79.899 Other long term (current) drug therapy
CPT/HCPCS: 36415; 80053; 80061; 80164; 83036; 83721; 85025

== ENCOUNTER 2018-10-21 15:12 | Emergency (ER) | payer MEDICAID ==
[2018-10-21 15:42] VITALS: BP 92/76
[2018-10-21] MEDS ORDERED: LORATADINE 10 MG TABLET PO STA (16:54)
[2018-10-21] MEDS ORDERED: cephALEXin 250 MG CAPSULE PO STA (16:54)
--- NOTE | 2018-10-21 16:57 | ED Physician Documentation ---
PD HPI OPHTHO - Stated complaint Stated Complaint: LT EYE SWELLING - Chief complaint Chief Complaint: Heent - History obtained from History obtained from: Patient, Caregiver - History of Present Illness Timing - onset: Today (58-year-old gentleman with history of schizophrenia, sleep apnea on CPAP presents with swelling of the left inferior lid that started today without visual deficit. Its relatively painless.) Review of Systems Constitutional: reports: Reviewed and negative Cardiac: reports: Reviewed and negative Respiratory: reports: Reviewed and negative PD PAST MEDICAL HISTORY - Past Medical History Cardiovascular: Congestive heart failure, Hypertension Respiratory: Sleep apnea Neuro: None Endocrine/Autoimmune: None GI: None : None HEENT: None Psych: Other Musculoskeletal: None Derm: None - Past Surgical History Past Surgical History: Yes Ortho: Hip replacement Cardiovascular: Valve replacement - Present Medications Home Medications: Ambulatory Orders Medication Instructions Recorded Confirmed Calcium Carb, Citrate/Vit D3 1 tab PO DAILY 12/29/13 04/21/17 [Calcium + D3 ER Tablet] Docusate Sodium 100Mg Capsule 100 mg PO DAILY 12/29/13 04/21/17 [Colace] Duloxetine HCl [Cymbalta] 60 mg PO DAILY 12/29/13 04/21/17 Metoprolol Succinate [Toprol Xl] 50 mg PO DAILY 12/29/13 04/21/17 Multivitamin [Multivitamins] 1 tab PO DAILY 12/29/13 04/21/17 Prazosin [Minipress] 1 mg PO DAILY 12/29/13 04/21/17 QUEtiapine [SEROquel] 400 mg PO DAILY 12/29/13 04/21/17 risperiDONE [Risperidone] 2 mg PO BID 12/29/13 04/21/17 Aspirin [Adult Low Dose Aspirin EC] 81 mg PO DAILY 11/15/15 04/21/17 Divalproex Sodium [Divalproex 1,000 mg PO DAILY 11/15/15 04/21/17 Sodium ER] Fluticasone [Flonase] 2 sprays NS DAILY 11/15/15 04/21/17 Furosemide 20 mg PO DAILY 11/15/15 04/21/17 Losartan Potassium 25 mg PO DAILY 11/15/15 04/21/17 Rivaroxaban [Xarelto] 20 mg PO DAILY 11/15/15 04/21/17 Pravastatin [Pravachol] 04/05/18 raNITIdine [Zantac] 04/05/18 Cephalexin [Keflex] 500 mg PO Q6H #28 capsule 10/21/18 Loratadine 10 mg PO DAILY #30 capsule 10/21/18 - Allergies Allergies/Adverse Reactions: Allergies Allergy/AdvReac Type Severity Reaction Status Date / Time Penicillins Allergy Unknown Verified 10/21/18 15:40 - Social History Does the pt smoke?: No Smoking Status: Never smoker Does the pt drink ETOH?: No Does the pt have substance abuse?: No - Immunizations Immunizations are current?: Yes - POLST Patient has POLST: No PD ED PE NORMAL - Vitals Vital signs reviewed: Yes - General General: Alert and oriented X 3, No acute distress - HEENT HEENT: PERRL, EOMI, Other (He has angioedema of the left lower lid without conjunctivitis or drainage.) - Neck Neck: Supple, no meningeal sign, No bony TTP - Neuro Neuro: Alert and oriented X 3, staff certified nurse midwife 2-12 intact Eye Opening: Spontaneous Motor: Obeys Commands Verbal: Oriented GCS Score: 15 Results - Vitals Vitals: Vital Signs - 24 hr 10/21/18 15:36 Temperature 36.9 C Heart Rate 100 Respiratory 16 Rate Blood Pressure 92/76 O2 Saturation 94 Oxygen O2 Source Room air PD MEDICAL DECISION MAKING - ED course ED course: 58-year-old gentleman presents with angioedema of the left lower lip. He is not on an CHRISTINA inhibitor. It looks allergic more than infectious but covered for both. Normal I would use steroids for this but given his underlying schizophrenia I do not want to aggravate that so he is just put on an antihistamine. Departure - Departure Disposition: 01 Home, Self Care Clinical Impression: Angioedema Qualifiers: Encounter type: initial encounter Qualified Code(s): T78.3XXA - Angioneurotic edema, initial encounter Condition: Good Record reviewed to determine appropriate education?: Yes Instructions: ED Angioedema Prescriptions: Cephalexin [Keflex] 500 mg PO Q6H #28 capsule Loratadine 10 mg PO DAILY #30 capsule Comments: Return if worse or if he develops a fever.
== END 2018-10-21 17:07 | disposition home or self-care (01) ==
LOC: ED 15:12
DX: T78.3XXA Angioneurotic edema, initial encounter (principal); H02.845 Edema of left lower eyelid; I11.0 Hypertensive heart disease with heart failure; I50.9 Heart failure, unspecified; Z79.01 Long term (current) use of anticoagulants; Z95.2 Presence of prosthetic heart valve; Z79.82 Long term (current) use of aspirin; G47.30 Sleep apnea, unspecified; F20.9 Schizophrenia, unspecified
CPT/HCPCS: 99283; A9270

== ENCOUNTER 2019-08-10 09:48 | Outpatient (CLI) | payer MEDICAID ==
[2019-08-10 10:01] LABS: BASOPHILS % (AUTO) 0.4 %; EOSINOPHILS # (AUTO) 0.1 10^3/uL (0.0-0.7); EOSINOPHILS % (AUTO) 2.2 %; HGB - HEMOGLOBIN 13.4 g/dL (14.0-18.0); LYMPHOCYTES # (AUTO) 1.9 10^3/uL (1.5-3.5); LYMPHOCYTES % (AUTO) 38.2 %; MEAN CORPUSCULAR HEMOGLOBIN 31.1 pg (27.0-31.0); MEAN CORPUSCULAR HGB CONC 33.6 g/dL (32.0-36.0); MEAN CORPUSCULAR VOLUME 92.6 fL (80.0-94.0); MEAN PLATELET VOLUME 10.4 fL (7.4-11.4); MONOCYTES # (AUTO) 0.5 10^3/uL (0.0-1.0); MONOCYTES % (AUTO) 10.4 %; NEUTROPHILS # (AUTO) 2.4 10^3/uL (1.5-6.6); NEUTROPHILS % (AUTO) 48.4 %; PLT - PLATELET COUNT 145 10^3/uL (130-450); RED BLOOD COUNT 4.31 10^6/uL (4.70-6.10); RED CELL DISTRIBUTION WIDTH 14.1 % (12.0-15.0)
[2019-08-10 10:22] LABS: ALBUMIN 3.9 g/dL (3.2-5.5); ALBUMIN/GLOBULIN RATIO 1.2 (1.0-2.2); ALKALINE PHOSPHATASE 45 IU/L (42-121); ALT ALANINE AMINOTRANSFERASE 25 IU/L (10-60); AST ASPARTATE AMINOTRANSFERASE 31 IU/L (10-42); BILIRUBIN,DIRECT 0.1 mg/dL (0.1-0.5); BILIRUBIN,TOTAL 0.6 mg/dL (0.2-1.0); BUN - BLOOD UREA NITROGEN 15 mg/dL (6-20); CALCIUM 8.3 mg/dL (8.5-10.3); CARBON DIOXIDE - CO2 27 mmol/L (21-32); CHLORIDE 99 mmol/L (101-111); CREATININE 1.3 mg/dL (0.6-1.2); GFR - MDRD 57 (>89); GLUCOSE 95 mg/dL (70-100); SODIUM 137 mmol/L (135-145); TOTAL PROTEIN 7.2 g/dL (6.7-8.2); VALPROIC ACID (DEPAKOTE) 48.9 ug/mL
== END 2019-08-10 09:49 | disposition home or self-care (01) ==
LOC: LAB 09:48
PROVIDERS: ATTEND Psychiatry & Neurology Psychiatry
DX: F25.0 Schizoaffective disorder, bipolar type (principal)
CPT/HCPCS: 36415; 80053; 80164; 82248; 85025

== ENCOUNTER 2019-11-07 09:23 | Emergency (ER) | payer MEDICAID ==
--- NOTE | 2019-11-07 09:40 | ED Physician Documentation ---
PD HPI OPHTHO - Stated complaint Stated Complaint: L EYE IRRITATION - Chief complaint Chief Complaint: Heent - History obtained from History obtained from: Patient - History of Present Illness Timing - onset: Today Timing - details: Abrupt onset (He noted redness in the left eye this morning when he got up to brush his teeth and noticed it in the mirror. He denied any eye pain. He is not aware of any injury. It is apparently was normal last night. He is on a blood thinner and had a home health nurse visit this morning which showed a INR of 4. He is instructed to hold it for 2 days. He was referred to come into the ER for evaluation.) Location: Left Associated symptoms: Redness (at the medial portion of the sclera.) Contributing factors: No: FB, Blunt trauma Similar symptoms before: Has not had sx before Review of Systems Eyes: denies: Loss of vision, Decreased vision, Photophobia Nose: denies: Rhinorrhea / runny nose, Congestion Throat: denies: Sore throat Respiratory: denies: Cough Endocrine: reports: Easy bruising / bleeding PD PAST MEDICAL HISTORY - Past Medical History Cardiovascular: Congestive heart failure, Hypertension Respiratory: Sleep apnea Neuro: None Endocrine/Autoimmune: None GI: None : None HEENT: None Psych: Other Musculoskeletal: None Derm: None - Past Surgical History Past Surgical History: Yes Ortho: Hip replacement Cardiovascular: Valve replacement - Present Medications Home Medications: Ambulatory Orders Medication Instructions Recorded Confirmed Calcium Carb, Citrate/Vit D3 1 tab PO DAILY 12/29/13 04/21/17 [Calcium + D3 ER Tablet] Docusate Sodium 100Mg Capsule 100 mg PO DAILY 12/29/13 04/21/17 [Colace] Duloxetine HCl [Cymbalta] 60 mg PO DAILY 12/29/13 04/21/17 Metoprolol Succinate [Toprol Xl] 50 mg PO DAILY 12/29/13 04/21/17 Multivitamin [Multivitamins] 1 tab PO DAILY 12/29/13 04/21/17 Prazosin [Minipress] 1 mg PO DAILY 12/29/13 04/21/17 QUEtiapine [SEROquel] 400 mg PO DAILY 12/29/13 04/21/17 risperiDONE [Risperidone] 2 mg PO BID 12/29/13 04/21/17 Aspirin [Adult Low Dose Aspirin EC] 81 mg PO DAILY 11/15/15 04/21/17 Divalproex Sodium [Divalproex 1,000 mg PO DAILY 11/15/15 04/21/17 Sodium ER] Fluticasone [Flonase] 2 sprays NS DAILY 11/15/15 04/21/17 Furosemide 20 mg PO DAILY 11/15/15 04/21/17 Losartan Potassium 25 mg PO DAILY 11/15/15 04/21/17 Rivaroxaban [Xarelto] 20 mg PO DAILY 11/15/15 04/21/17 Pravastatin [Pravachol] 04/05/18 raNITIdine [Zantac] 04/05/18 Cephalexin [Keflex] 500 mg PO Q6H #28 capsule 10/21/18 Loratadine 10 mg PO DAILY #30 capsule 10/21/18 - Allergies Allergies/Adverse Reactions: Allergies Allergy/AdvReac Type Severity Reaction Status Date / Time Penicillins Allergy Unknown Verified 11/07/19 09:27 - Social History Does the pt smoke?: No Smoking Status: Never smoker Does the pt drink ETOH?: No Does the pt have substance abuse?: No - Immunizations Immunizations are current?: Yes - POLST Patient has POLST: No PD ED PE NORMAL - Vitals Vital signs reviewed: Yes - General General: Alert and oriented X 3, No acute distress, Well developed/nourished - HEENT HEENT: PERRL, EOMI, Other (small subconjunctival hemorrhage left eye at 6-8 o'clock position. Anterior and posterior chambers are normal. ) Results - Vitals Vitals: Vital Signs - 24 hr 11/07/19 11/07/19 09:27 10:30 Temperature 36.4 C L Heart Rate 86 88 Respiratory 18 18 Rate Blood Pressure 102/66 104/68 O2 Saturation 95 96 Oxygen O2 Source Room air PD MEDICAL DECISION MAKING - ED course Complexity details: considered differential (Subconjunctival hemorrhage. Anterior and posterior chambers appear normal. He had his Coumadin level checked earlier today at by home health and it was 4 any already been instructed to hold it for 2 days.), d/w patient Departure - Departure Disposition: 01 Home, Self Care Clinical Impression: Anticoagulant long-term use Subconjunctival hemorrhage Qualifiers: Laterality: left Qualified Code(s): H11.32 - Conjunctival hemorrhage, left eye Condition: Stable Record reviewed to determine appropriate education?: Yes Instructions: ED Eye Injury Subconj Hemorrhage Comments: This should resolve slowly on its own over several days to a week. At this po int I would not see need to hold your Xarelto or aspirin. However if the amount of blood on the eye increases significantly (a quarter or half of the eye area), then you may consider holding your Xarelto for a day or 2. Otherwise at this point its less likely for the bleeding to continue. Refrain from rubbing your eyes or such. Discharge Date/Time: 11/07/19 10:31
[2019-11-07 10:32] VITALS: BP 104/68
== END 2019-11-07 10:31 | disposition home or self-care (01) ==
LOC: ED 09:23
DX: H11.32 Conjunctival hemorrhage, left eye (principal); I10 Essential (primary) hypertension; Z79.01 Long term (current) use of anticoagulants
CPT/HCPCS: 99281; 99283

== ENCOUNTER 2019-12-19 09:08 | Outpatient (CLI) | payer MEDICAID | END 2019-12-19 09:09 | disposition home or self-care (01) | LOC: DI 09:08 | PROVIDERS: ATTEND Nurse Practitioner | DX: I51.7 Cardiomegaly (principal); I49.9 Cardiac arrhythmia, unspecified | CPT/HCPCS: 93306 ==

== ENCOUNTER 2020-01-30 11:27 | Outpatient (CLI) | payer MEDICAID ==
[2020-01-30 18:32] LABS: CALCIUM 8.8 mg/dL (8.5-10.3); CREATININE 1.2 mg/dL (0.6-1.2)
[2020-01-30 18:33] LABS: HEMOGLOBIN A1c% 5.8 % (4.27-6.07)
== END 2020-01-30 11:28 | disposition home or self-care (01) ==
LOC: LAB.WCP 11:27
PROVIDERS: ATTEND Physician Assistant
DX: R94.4 Abnormal results of kidney function studies (principal); E83.51 Hypocalcemia; R73.9 Hyperglycemia, unspecified
CPT/HCPCS: 36415; 80048; 83036; 83970

== ENCOUNTER 2020-12-04 09:04 | Outpatient (CLI) | payer MEDICAID | END 2020-12-04 09:05 | disposition home or self-care (01) | LOC: DI 09:04 | DX: Q22.5 Ebstein's anomaly (principal); Z95.3 Presence of xenogenic heart valve; Z98.890 Other specified postprocedural states | CPT/HCPCS: 93306 ==

== ENCOUNTER 2021-11-21 08:09 | Outpatient (CLI) | payer MEDICAID ==
[2021-11-21 08:30] LABS: CALCIUM 8.4 mg/dL (8.5-10.3); CREATININE 1.1 mg/dL (0.6-1.2); POTASSIUM 4.1 mmol/L (3.5-5.0)
== END 2021-11-21 08:10 | disposition home or self-care (01) ==
LOC: LAB.R 08:09
PROVIDERS: ATTEND Internal Medicine
DX: I10 Essential (primary) hypertension (principal); I25.10 Atherosclerotic heart disease of native coronary artery without angina pectoris; Q22.5 Ebstein's anomaly; I48.0 Paroxysmal atrial fibrillation; E78.2 Mixed hyperlipidemia
CPT/HCPCS: 80048

== ENCOUNTER 2023-11-09 08:23 | Outpatient (CLI) | payer MEDICAID ==
[2023-11-09 08:51] LABS: CHOL/HDL RATIO 3.1 (<5.0); CHOLESTEROL 134 mg/dL; HDL CHOLESTEROL 43 mg/dL; LDL CHOLESTEROL,CALCULATED 62 mg/dL; LDL/HDL RATIO 1.4 (<3.6); TRIGLYCERIDES 147 mg/dL (48-352); VALPROIC ACID (DEPAKOTE) 75.1 ug/mL; VLDL CHOLESTEROL 29 mg/dL
[2023-11-09 10:25] LABS: ESTIMATED AVERAGE GLUCOSE 123 mg/dL (70-100); HEMOGLOBIN A1c% 5.9 % (4.27-6.07)
== END 2023-11-09 08:24 | disposition home or self-care (01) ==
LOC: LAB 08:23
PROVIDERS: ATTEND Nurse Practitioner Psychiatric/Mental Health
DX: F25.0 Schizoaffective disorder, bipolar type (principal); Z79.899 Other long term (current) drug therapy
CPT/HCPCS: 36415; 80061; 80164; 83036; 83721; 84146